=== PATIENT | female | born 1990 | race Two or more races ===

== ENCOUNTER 2017-09-13 20:45 | Inpatient (IN) | payer OTHER ==
[~2017-09-13] VITALS: Ht 172.7 cm; Wt 54.9 kg
[2017-09-13] MEDS ORDERED: HALOPERIDOL 5 MG TABLET PO PRN (21:15)
[2017-09-13] MEDS ORDERED: LORazepam 2 MG TABLET PO PRN (21:15)
[2017-09-13 21:57] VITALS: BP 145/97
[2017-09-13 22:00] VITALS: BP 134/74
[2017-09-13] MEDS: ZOLPIDEM TARTRATE 10 MG TABLET PO PRN (22:09)
[2017-09-14 05:11] VITALS: BP 140/84
[2017-09-14 08:31] VITALS: BP 120/77
[2017-09-14 08:52] LABS: BASOPHILS % (AUTO) 0.6 % (0.0-2.0); EOSINOPHILS % (AUTO) 3.7 % (1.0-6.0); HEMATOCRIT 45.4 % (36-46); HEMOGLOBIN 16.1 g/dL (12.0-16.0); LYMPHOCYTES # (AUTO) 2.4 K/uL (1.0-4.8); LYMPHOCYTES % (AUTO) 38.4 % (22.0-44.0); MEAN CORPUSCULAR HGB CONC 35.6 G/dL (31.0-37.0); MEAN CORPUSCULAR VOLUME 96 fL (80-100); MONOCYTES # (AUTO) 0.5 K/uL (0.1-1.0); MONOCYTES % (AUTO) 7.6 % (2.0-9.0); NEUTROPHILS % (AUTO) 49.7 % (40.0-70.0); PLATELET COUNT (AUTO) 269 K/uL (150-450); RED BLOOD CELL COUNT(AUTO) 4.74 MIL/uL (4.00-5.20); RED CELL DISTRIBUTION WIDTH 13.2 % (11.5-14.5)
[2017-09-14 09:21] LABS: ALANINE AMINOTRANSFERASE 22 U/L (12-78); ALBUMIN 4.1 g/dL (3.4-5.0); ALKALINE PHOSPHATASE 56 U/L (46-116); ANION GAP 8 mmol/L (8-16); ASPARTATE AMINOTRANSFERASE 19 U/L (15-37); BILIRUBIN,TOTAL 0.6 mg/dL (0.1-1.0); CALCIUM, TOTAL 9.2 mg/dL (8.8-10.5); CARBON DIOXIDE 30 mmol/L (22-29); CHLORIDE 104 mmol/L (98-107); CHOL/HDL RATIO 1.8 (3.9-5.7); CHOLESTEROL 146 mg/dL (131-200); CREATININE 0.75 mg/dL (0.60-1.30); FREE T4 (FREE THYROXINE) 1.03 ng/dL (0.76-1.46); GLOMERULAR FILTR. RATE CALC > 60 mL/min (>60); GLUCOSE,RANDOM 113 mg/dL (70-110); HCG,QUANTITATIVE < 1 mIU/mL (0-6); HDL CHOLESTEROL 82 mg/dL (40-60); LDL CHOL (CALC.) 56 mg/dL (0-130); POTASSIUM 3.8 mmol/L (3.5-5.1); SODIUM SERUM 142 mmol/L (136-145); THYROID STIMULATING HORMONE 1.72 uIU/mL (0.36-3.74); TOTAL PROTEIN, SERUM 8.4 g/dL (6.4-8.2); TRIGLYCERIDES 38 mg/dL (15-150)
[2017-09-14 09:30] LABS: UREA NITROGEN, BLOOD 19 mg/dL (7-18)
[2017-09-14 09:44] LABS: HEMOGLOBIN A1C 5.8 % (4.5-6.2)
[2017-09-14] MEDS: ESCITALOPRAM OXALATE 10 MG TABLET PO SCH (10:18)
[2017-09-14 16:09] VITALS: BP 121/74
[2017-09-14] MEDS: ZOLPIDEM TARTRATE 10 MG TABLET PO PRN (21:00)
[2017-09-15 06:22] VITALS: BP 114/67
[2017-09-15 08:17] VITALS: BP 128/89
[2017-09-15] MEDS: ESCITALOPRAM OXALATE 10 MG TABLET PO SCH (08:43)
[2017-09-15 16:16] VITALS: BP 139/88
[2017-09-15] MEDS: ZOLPIDEM TARTRATE 10 MG TABLET PO PRN (23:44)
[2017-09-16 00:16] VITALS: BP 139/83
[2017-09-16] MEDS: ESCITALOPRAM OXALATE 10 MG TABLET PO SCH (08:16)
[2017-09-16 08:17] VITALS: BP 109/68
[2017-09-16] MEDS ORDERED: ESCI10TA PO (12:24)
== END 2017-09-16 14:05 | disposition home or self-care (01) | DRG 885 ==
LOC: B3A 21:26 → EDBD 21:26
PROVIDERS: ADMIT Psychiatry & Neurology Psychiatry; ATTEND Psychiatry & Neurology Psychiatry
DX: F33.2 Major depressive disorder, recurrent severe without psychotic features (principal); R45.851 Suicidal ideations; F50.9 Eating disorder, unspecified; F10.10 Alcohol abuse, uncomplicated; F12.10 Cannabis abuse, uncomplicated; G47.00 Insomnia, unspecified; R73.9 Hyperglycemia, unspecified; Z91.5 Personal history of self-harm; Z71.41 Alcohol abuse counseling and surveillance of alcoholic; Z71.51 Drug abuse counseling and surveillance of drug abuser
CPT/HCPCS: 83036; 84439; 84443